=== PATIENT | female | born 1975 | race African-American/Black ===

== ENCOUNTER 2018-06-04 21:26 | Emergency (ER) | payer MEDICAID ==
[~2018-06-04] VITALS: Ht 175.3 cm; Wt 68.0 kg
[2018-06-04] MEDS ORDERED: KETOROLAC 30MG/ML VIAL IV STA (23:36)
[2018-06-04] MEDS ORDERED: SODIUM CHLORIDE 0.9% 1,000 ML IV ONE (23:36)
[2018-06-04] MEDS ORDERED: ONDANSETRON HCL 4MG/2ML INJ IV STA (23:36)
[2018-06-05 00:46] LABS: BASOPHILS % 0.8 % (0.0-2.0); EOSINOPHILS % 0.1 % (0.0-5.0); HEMATOCRIT. 40.2 % (36.0-48.0); HEMOGLOBIN. 13.3 g/dL (12.0-16.0); LYMPHOCYTES % 19.5 % (20.0-50.0); MEAN CORPUSCULAR HEMOGLOBIN 28.1 pg (28.0-32.0); MEAN CORPUSCULAR VOLUME 84.8 fL (81.0-99.0); MEAN PLATELET VOLUME 8.2 fl (7.4-10.4); MONOCYTES % 6.7 % (2.0-8.0); NEUTROPHILS % 72.9 % (40.0-76.0); PLATELET 270 x1000/uL (130-400); RED BLOOD CELL COUNT 4.74 mill/uL (4.2-5.4)
[2018-06-05 00:59] LABS: CHLORIDE 109 mEq/L (98-107)
[2018-06-05] MEDS ORDERED: SODIUM CHLORIDE 0.9% 1,000 ML IV ONE (03:05)
[2018-06-05 06:24] VITALS: BP 111/67
[2018-06-05] MEDS ORDERED: IOHEXOL-350 100 ML BOTTLE ONE (06:45)
== END 2018-06-05 06:29 | disposition home or self-care (01) ==
LOC: ER 21:26
DX: R06.02 Shortness of breath (principal)
CPT/HCPCS: 36415; 70450; 71045; 71275; 80053; 81025; 83880; 84484; 85025; 85379; 93005; 96374; 96375; 99284; J1885; J2405; J7030; Q9967